=== PATIENT | male | born 1955 | race Caucasian/White ===

== ENCOUNTER 2016-09-14 11:42 | Day surgery (SDC) | payer OTHER ==
[~2016-09-14] VITALS: Ht 177.8 cm; Wt 61.7 kg
[2016-09-14] VITALS (11 sets, daily range): BP systolic 109–134; BP diastolic 55–73; PULSE 66–74; RESP 14–26; Ht 177.8 cm; Wt 61.7 kg
[~2016-09-14 11:42] MED LIST: BUPIVACAINE 0.25% (MPF) 30 ML INJ INJ ONE; EPHEDrine SULFATE 50 MG/5 ML SYG ONE; POLYMYXIN/BACITRACIN 1L IRRIG IRR ONE
[2016-09-14] MEDS ORDERED: CEFAZOLIN 2 GM/50 ML (PMX) 50 ML IVPB ONE (12:00)
[2016-09-14] MEDS ORDERED: SOD CHLORIDE 0.9% 1,000 ML IV ONE (12:00)
[2016-09-14] MEDS ORDERED: BUPIVACAINE 0.5% (SDV) 30 ML INJ ONE (12:45)
[2016-09-14] MEDS ORDERED: LIDOCAINE 2% (MDV) 20 ML INJ ONE (12:45)
[2016-09-14] MEDS ORDERED: BUPIVACAINE 0.25% (MPF) 30 ML INJ ONE (12:45)
[2016-09-14] MEDS ORDERED: SERT100T PO (13:32)
[2016-09-14] MEDS ORDERED: MIDAZOLAM 1 MG/ML 2 ML INJ ONE (14:11)
[2016-09-14] MEDS ORDERED: FENTAnyl 50 MCG/ML VIAL ONE (14:12)
[2016-09-14] MEDS ORDERED: CEFAZOLIN 1 GM INJ ONE (14:30)
[2016-09-14] MEDS ORDERED: ONDANSETRON 4 MG INJ ONE (14:45)
[2016-09-14] MEDS ORDERED: DEXAMETHASONE 4 MG/ML 1 ML INJ ONE (14:45)
[2016-09-14] MEDS ORDERED: ROPIVACAINE 0.2% 20 ML VIAL ONE (14:50)
[2016-09-14] MEDS ORDERED: oxyCODONE (CR) 10 MG TAB [oxyCONTIN] PO ONE (15:30)
[2016-09-14] MEDS ORDERED: HYDROmorphONE (0.2 MG/ML) 10ML SYG IV PRN ×2 (15:30)
[2016-09-14] MEDS ORDERED: MEPERIDINE 25 MG INJ IV PRN (15:30)
--- NOTE | 2016-09-14 19:59 | OPR ---
DATE OF OPERATION: 09/14/2016 INDICATION: This is a 61-year-old male with a left inguinal hernia. He requests surgical repair. Risks, alternatives, benefits, and personnel were discussed with the patient. The patient expressed understanding and consents to the operation. PREOPERATIVE DIAGNOSIS: Left inguinal hernia. POSTOPERATIVE DIAGNOSIS: Left inguinal hernia. OPERATION: Open left inguinal hernia repair with medium size UltraPro hernia system mesh. SURGEON: Fransisca Eden MD COMPLICATIONS: None. ANESTHESIA: General. DESCRIPTION OF PROCEDURE: The patient was taken to the OR and prepped and draped in usual sterile f ashion. Surgical timeout was performed. IV antibiotics were given. Left inguinal oblique incision is made with a 10 blade. Dissection cautery was carried down to external oblique fascia, which was opened with a 15 blade. This incision is extended medial inferiorly and lateral superiorly with Me tzenbaum scissors. Cord structures were identified and encircled with a Sara drain. There appea red to be a large direct hernia. This was reduced and supported by the disk portion of the UltraPro hernia system mesh. This was secured in place with a running 0 Prolene from the pubic tubercle lisa ng the shelving edge of the inguinal ligament and superiorly to the internal oblique with interrupte d 3-0 Vicryl. Onlay mesh was secured in a similar fashion with a running 0 Prolene from the pubic t ubercle along the shelving edge of the inguinal ligament. Straps were created and reapproximated to recreate the inguinal ring with interrupted 0 Prolene. Superiorly the onlay mesh was secured with interrupted 3-0 Vicryl. External oblique fascia was closed with a running 3-0 Vicryl. Pierre's was closed with interrupted 3-0 Vicryl. Skin was closed using skin genesis. Local anesthesia was inje cted. Dry dressings were applied. Dictated By: FRANSISCA JANE/TAE Conf#: [id number] DID#: [id number]
== END 2016-09-14 16:30 | disposition home or self-care (01) ==
LOC: SDS 11:42
PROVIDERS: ATTEND Surgery
DX: K40.90 Unilateral inguinal hernia, without obstruction or gangrene, not specified as recurrent (principal)
CPT/HCPCS: 49505; C1781; J0690; J1100; J1170; J2250; J2405; J2795; J3010; Z7512; Z7610